=== PATIENT | male | born 1990 | race Two or more races ===

== ENCOUNTER 2018-08-17 21:21 | Emergency (ER) | payer SELFPAY ==
[~2018-08-17] VITALS: Ht 170.2 cm; Wt 95.3 kg
[2018-08-17 21:28] VITALS: BP 158/98
[2018-08-17] MEDS ORDERED: LORazepam 1 MG TABLET ONE (21:51)
[2018-08-17] MEDS ORDERED: LORazepam 1 MG TABLET PO ONE (22:00)
[2018-08-17] MEDS ORDERED: LORA0.5T96 PO (22:10)
--- NOTE | 2018-08-17 22:11 | PHYS DOC ---
Past Medical History Past Medical History: Other Additional Past Medical Histor: PANIC ATTACKS (SILVESTRE FINNEGAN) Past Surgical History: No Surgical History (SILVESTRE FINNEGAN) Alcohol Use: Occasionally Drug Use: None (SILVESTRE FINNEGAN) Adult General Chief Complaint Chief Complaint: ANXIETY/PANIC ATTACK HPI HPI Patient is a 28 year old M who comes in to ER with his mother. He states he has a history of depression and anxiety and was on Risperidol in the past. He has been off medication for "a long time" but states lately he has been having problems with anxiety. He states he has had thoughts about what life is like after but he does not want to and has not had any thoughts of killing himself but more just anxiety about the after life. Pt states he has a good support system at home and that he just thinks he needs to be set back up with a psychiatrist or a counselor. Pt states when he feels the anxiety getting back he will feel SOB and feel his heart racing. This occurred again tonight, which is why he decided to come to ER. He states he is feeling okay currently but has mild "tightness" in his chest when he is talking about it. Pt adamantly denies SI/HI. (SILVESTRE FINNEGAN) Review of Systems Review of Systems Constitutional: Denies fever or chills [] Respiratory: Denies cough. Reports intermittent SOB Cardiovascular: Reports chest tightness. GI: Denies abdominal pain, nausea, vomiting, bloody stools or diarrhea [] Musculoskeletal: Denies back pain or joint pain [] Integument: Denies rash or skin lesions [] Neurologic: Denies headache, focal weakness or sensory changes [] Psych: Reports anxiety All other systems were reviewed and found to be within normal limits, except as documented in this note. (SILVESTRE FINNEGAN) Current Medications Current Medications Current Medications Medications (Trade) Dose Ordered Sig/Jackelyn Start Time Stop Time Status Last Admin Dose Admin Lorazepam (Ativan) 1 mg STK-MED ONCE 08/17/18 21:51 08/17/18 21:52 DC (RASHI ANN MD) Allergies Allergies Allergies Coded Allergies Type Severity Reaction Last Updated Verified Penicillins Allergy Severe RASH 08/17/18 Yes (RASHI ANN MD) Physical Exam Physical Exam Constitutional: Well developed, well nourished, no acute distress, non-toxic appearance. Neck: Normal range of motion, no tenderness, supple, no stridor. [] Cardiovascular:Heart rate regular rhythm, no murmur [] Lungs & Thorax: Bilateral breath sounds clear to auscultation [] Abdomen: Bowel sounds normal, soft, no tenderness, no masses, no pulsatile masses. [] Skin: Warm, dry, no erythema, no rash. [] Back: No tenderness, no CVA tenderness. [] Extremities: No tenderness, no cyanosis, no clubbing, ROM intact, no edema. [] Neurologic: Alert and oriented X 3, normal motor function, normal sensory function, no focal deficits noted. [] Psychologic: Affect normal, judgement normal. Anxious but able to communicate well. (SILVESTRE FINNEGAN) Current Patient Data Vital Signs Vital Signs Date Time Temp Pulse Resp B/P (MAP) Pulse Ox O2 Delivery O2 Flow Rate FiO2 08/17/18 21:28 97.7 82 20 158/98 (118) 98 Room Air 97.7 (RASHI ANN MD) EKG EKG EKG NSR, no STEMI (SILVESTRE FINNEGAN) Radiology/Procedures Radiology/Procedures [] (SILVESTRE FINNEGAN) Course & Med Decision Making Course & Med Decision Making Pertinent Labs and Imaging studies reviewed. (See chart for details) Pt given Ativan here in ER and reports improvement in symptoms. He is calm and cooperative with apparent good judgement. We discussed in length that I am not comfortable prescribing a medication such as Respiradol when it has been years since he took it. I have recommend we refer him back to [facility] for evaluation. Will prescribe small quantity of Ativan to take PRN anxiety but discussed that this medicine is addictive and do not recommend it for meterman use unless psychiatrist recommends it. He voices understanding. Pt again denies any thoughts of self harm or wanting to harm others and I have asked him to return if symptoms worsen at anytime. (SILVESTRE FINNEGAN) Course & Med Decision Making Staff Physician Addendum: I was working in the ER during the course of this patient's visit. I was available for consultation as needed, but I was not directly involved in the care of this patient. (RASHI ANN MD) Dragon Disclaimer Dragon Disclaimer This electronic medical record was generated, in whole or in part, using a voice recognition dictation system. (SILVESTRE FINNEGAN) Departure Departure Impression: Primary Impression: Anxiety Disposition: 01 HOME, SELF-CARE Condition: STABLE Referrals: DANNI MAYS MD (PCP) Patient Instructions: Anxiety and Panic Attacks, [id number] Additional Instructions: Please rest and push fluids. Work on relaxation methods such as prayer, meditation, long walks. Follow up with [facility]. Scripts Lorazepam (ATIVAN) 0.5 Mg Tablet 0.5 MG PO BID, #16 TAB Prov: SILVESTRE FINNEGAN 08/17/18 SILVESTRE FINNEGAN August 17, 2018 22:10 RASHI ANN MD August 26, 2018 21:22
--- NOTE | 2018-08-18 08:19 | EKG ---
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
== END 2018-08-17 22:13 | disposition home or self-care (01) ==
LOC: ER 21:21
DX: F41.9 Anxiety disorder, unspecified (principal); R06.02 Shortness of breath; R00.0 Tachycardia, unspecified; R07.89 Other chest pain; Z88.0 Allergy status to penicillin
CPT/HCPCS: 93005; 99283; 99284